=== PATIENT | female | born 1950 | race Caucasian/White ===

== ENCOUNTER 2017-03-09 14:33 | Inpatient (IN) | payer MEDICARE, MEDICAID ==
[~2017-03-09] VITALS: Ht 165.1 cm; Wt 56.9 kg
--- NOTE | ~2017-03-09 | ER ---
PATIENT'S NAME: SEUN TOWNSEND [facility] AGE: 66 Y [address] ROOM: [place] [address] [place] [facility] [place]: 03/09/[place] ER/Outpatient Report DISCHARGE DATE: FAMILY PHYSICIAN: PHYSICIAN, UNKNOWN ATTENDING PHYSICIAN: KEI LADD Time of Arrival: 1432 hours. Time of Exam: 1432 hours. CHIEF COMPLAINT: Fall. HISTORY OF PRESENT ILLNESS: The patient arrived per [facility] with saline lock in place. Report that the patient fell in the shower approximately 30 minutes prior to arrival. She states she just lost her balance and fell. She was complaining of neck pain upon ambulance arrival. Upon arrival to the ER, she states her neck is feeling better. She denies having any loss of consciousness. She denies pain anywhere else. She has not been nauseated, has not vomited, has not felt feverish or chills. A friend arrived shortly after the patient reports that since January the patient has had frequent falls, she used to walk with a walker and now is confined to a wheelchair. Friend stays with her and helps assist her from the bed to the wheelchair and from the wheelchair to the toilet, but questionable as to how well the patient is eating or having general care of herself. ALLERGIES: SHE HAS NO KNOWN ALLERGIES. CURRENT MEDICATIONS: On her chart and were reviewed by me. Med list was obtained from Pharmacy at [facility] where patient reports she gets her medications. PAST MEDICAL HISTORY: Bipolar, depression, and schizophrenia. PAST SURGERIES: Possible toe surgery, it was found on her old records, she is not able to tell us for sure if she has had any surgeries. SOCIAL HISTORY: She denies use of tobacco, drugs, or alcohol. REVIEW OF SYSTEMS: Negative other than those mentioned in the HPI. PATIENT'S NAME: SEUN TOWNSEND [facility] AGE: 66 Y [address] ROOM: [place] [address] [place] [facility] [place]: 03/09/2017 ER/Outpatient Report DISCHARGE DATE: FAMILY PHYSICIAN: PHYSICIAN, UNKNOWN ATTENDING PHYSICIAN: KEI LADD PHYSICAL EXAMINATION: VITAL SIGNS: She weighed 57 kg. Blood pressure 103/56, pulse of 102, respirations 18, temperature of 98.2, and O2 saturations 95% on room air. GENERAL: She is awake, alert, and oriented x4. SKIN: Ina, warm, and dry. Brittney Coma Scale is 15. HEENT: Pupils are equal reactive to light. Extraocular movements are intact. Negative nystagmus. Oropharynx is clear. She has teeth in various stages of decay. NECK: No lymphadenopathy of the neck is noted. LUNGS: Lung sounds were clear throughout. HEART: Regular rate and rhythm. ABDOMEN: Soft, nondistended. Bowel sounds are present. DIAGNOSTIC DATA: CT of the head and C-spine were completed. Radiologist reports that the C- spine was negative; however, she does have some edema of the right cerebellum and possibly a mass. I did draw lab at that point for CBC, chem panel, and ordered an MRI of the head with contrast. The patient was given Valium 2 mg IV push to help keep her calm throughout the CT scan. Her CBC is within normal limits. Chem panel: Sodium is 143, potassium is 3.7, chloride is 109, and her GFR is greater than 60. Radiologist reports with the MRI that the patient has an inflammatory lesion in the right cerebellum. Dr. Aparicio was consulted. We did together reassess the patient. Patient has fine tremor of hands. The patient is able to do nose to finger touch; with prompting, she is able to bring her left leg up to her right knee and slide it down her barker and slide it back up and do the same on the other side. However, she states she does feel dizzy with movement. I did do a CRP, it was 0.72, free T4 was 1.5, and a TSH at 2.59. Dr. Ladd was contacted regarding the patient, he agrees to admit her. IMPRESSION: 1. Disequilibrium. 2. Right cerebellum inflammatory lesion. PLAN: The patient will be placed in MSU with saline lock. Vital signs. Bed rest. Diet as tolerated with a hospitalist to follow. The patient and her friend verbalized understanding. LEILA CARLSON APRN FOR [employer]/damon PATIENT'S NAME: SEUN TOWNSEND [facility] AGE: 66 Y [address] ROOM: [address] [address] [place] [facility] [place] DATE: 03/09/2017 ER/Outpatient Report DISCHARGE DATE: FAMILY PHYSICIAN: PHYSICIAN, UNKNOWN ATTENDING PHYSICIAN: KEI LADD /[id number] d: 03/10/17 0056 t: 04/03/17 0912, OUTPATIENT REPORT
--- NOTE | ~2017-03-09 | HP ---
PATIENT'S NAME: SEUN TOWNSEND [facility] AGE: 66 Y [address] ROOM: [place] [id number] LOCATION: [facility] [place] ADMIT DATE: 03/09/2017 History & Physical DISCHARGE DATE: FAMILY PHYSICIAN: PHYSICIAN, UNKNOWN ATTENDING PHYSICIAN: KEI HAND DATE OF SERVICE: CHIEF COMPLAINT: Generalized weakness after mechanical fall. HISTORY OF PRESENT ILLNESS: This is a 66-year-old female, who says that she was at home taking a shower and her boyfriend was helping her, and all of a sudden, she slipped and fell while taking a shower; she states she hit the posterior right side of her head against the floor. There was no loss of consciousness, but there was some mild pain in the posterior neck. As the time went by, the patient felt that she was having this generalized weakness, and that is why the patient was brought here for further care and evaluation. The patient denies any chest pain, shortness of breath, palpitation, cough, blurry vision, headache, slurred speech, facial droop, sensation loss, numbness, or extreme muscle weakness. She just complained that she feels tired and weak in general. REVIEW OF SYSTEMS: As mentioned in the history of present illness. All other systems were reviewed and were negative except those mentioned in the history of present illness. PAST MEDICAL HISTORY: 1. Bipolar disorder. 2. Depression. 3. Schizophrenia. This is per medical records. 4. The patient denies any other medical problem. ALLERGIES: NO KNOWN DRUG ALLERGIES. HOME MEDICATIONS: The patient is not sure which one she takes; therefore, the list has to be reconciled first to find out. SOCIAL HISTORY: The patient denies any alcohol or illegal drug or cigarette use. PATIENT'S NAME: SEUN TOWNSEND [facility] AGE: 66 Y [address] ROOM: [address] [address] LOCATION: [facility] [place] ADMIT DATE: 03/09/2017 History & Physical DISCHARGE DATE: FAMILY PHYSICIAN: PHYSICIAN, UNKNOWN ATTENDING PHYSICIAN: KEI HAND FAMILY HISTORY: Father at the old age from a cause that she could not remember. Mother also from old age also from a cause that she could not remember. PAST SURGICAL HISTORY: The patient denies any surgery. PHYSICAL EXAMINATION: VITAL SIGNS: At the time of my dictation, temperature 98, blood pressure was 105/80, respiration was 14, saturation was 94% on room air, and heart rate was 84. GENERAL APPEARANCE: Alert and oriented x3. The patient looks weak and frail elderly female, who appears older than her age and looks malnourished, in no acute distress. HEENT: Pupils are equally round and reactive to light. Extraocular muscles intact. Anicteric sclerae. Nasal turbinates are normal bilaterally. Moist oral mucosa. NECK: No JVD. CARDIOVASCULAR: Regular rate and rhythm. Normal S1, S2. No murmur. No rubs, no gallops. RESPIRATORY: Clear to auscultation. No rales, no rhonchi, no crackles, no wheezing. ABDOMEN: Soft, nontender, nondistended, bowel sounds present, no mass. EXTREMITIES: She has edema in bilateral lower extremities. The patient states this is chronic and has not changed. SKIN: No ulcer, no rash, no cyanosis. NEUROLOGICAL: Cranial nerves 2 through 12 are unremarkable. There is no visual field loss. There is no sensation loss. There is contracture and spasticity in RUE and RLL but RUE more than RLE. Pronator drift negative. No facial droop. No slurred speech. Babinski negative. Allqob-aw-mizx with dysdiadochokinesia in right hand. Ccac-on-dshv with dysdiadochokinesia in right foot. Proprioception and also vibration intact. Mild weakness in RLE. LABORATORY DATA: White blood cells 5.9, hemoglobin 10.7, hematocrit 32.7, platelet 352. Glucose 93, BUN 13, creatinine 0.8, sodium 143, potassium 3.7, chloride 109, CO2 of 23, calcium 8.8. Total protein 7.8, albumin 3.3, AST 35, ALT 31, alkaline phosphatase 96, total bilirubin 1.1. Anion gap is 14.7, globulin 4.5. GFR more than 60. CRP is 0.72. Free T4 1.5. TSH 2.59. IMAGING STUDIES: CT of the brain done without contrast on admission showed abnormal edema in the right cerebellum of indeterminate etiology. Recommend an MRI. PATIENT'S NAME: SEUN TOWNSEND [facility] AGE: 66 Y [address] ROOM: [id number] [place] [address] LOCATION: [facility] [place] ADMIT DATE: 03/09/2017 History & Physical DISCHARGE DATE: FAMILY PHYSICIAN: PHYSICIAN, UNKNOWN ATTENDING PHYSICIAN: KEI HAND A MRI of the brain with and without contrast on admission showed the right cerebellar lesion is indeterminate. An inflammatory lesion is possible including demyelination. The appearance is atypical for neoplasm or infection. Follow up is recommended. CT of the cervical spine without contrast on admission showed no acute findings. ASSESSMENT AND PLAN: 1. Regarding her mechanical fall: PT, OT. Fall precaution. IV fluids. Pain control with Tylenol p.r.n. 2. Regarding her indeterminate right cerebellar lesion, probably an inflammatory lesion: This is based on the MRI of the brain. I have already spoken to the on-call neurologist, who will be coming by to see the patient. Further recommendation will depend on the clinical course and per Neurology evaluation. At the moment, the patient does not have any neurological deficit; however, I will keep checking the neuro check frequently. 3. Regarding her deep venous thrombosis prophylaxis: For now, I will use the compression devices, and I will speak to the Neurology about the deep vein thrombosis prophylaxis. 4. I will also give her IV fluids. The patient looks dry. I will check a UA to make sure she does not she does have any urinary tract infection. I will also get a chest x-ray given that she has leg edema, and check a proBNP to see if she has fluid overload and pleural effusion or congestive heart failure. Further plan depends on clinical course. Time spent in care on the day of admission 35 minutes where 15 minutes were spent on chart review. The remainder of time was spent on interview, physical examination, and chart review and also going over the plan of care with the patient. Further plan will depend on clinical course. MD ZEINAB SOSA/magalyl /[id number] D: 23 HISTORY & PHYSICAL
--- NOTE | ~2017-03-09 | DS ---
PATIENT'S NAME: SEUN TOWNSEND [facility] AGE: 66 Y [address] ROOM: [address] [address] LOCATION: [facility] [place] ADMIT DATE: 03/09/2017 Discharge Summary DISCHARGE DATE: 03/29/2017 FAMILY PHYSICIAN: PHYSICIAN, NO ATTENDING PHYSICIAN: Aimee Ladd PRIMARY PCP: Rocio Long PA-C. CONSULTING PHYSICIANS: Dr. Logan, Neurology; Dr. Wilkerson, Psychiatry; Lauren Liang APRN with [facility]. DISCHARGE DIAGNOSES: 1. Status post mechanical fall. 2. Right cerebellar demyelinating lesion. 3. Escherichia coli urinary tract infection, resolved. 4. Health care-associated pneumonia, resolved. 5. Sacral ulcer stage III. 6. Cognitive disorder. 7. Generalized weakness, impaired mobility, frequent falls. 8. Hypotension, stable. 9. Bipolar disorder. 10. Schizoaffective disorder. PRINCIPAL PROCEDURES: None. DISCHARGE MEDICATIONS: 1. Chlorhexidine gluconate oral rinse 4 times daily. 2. Vitamin B12 1000 mcg p.o. daily. 3. Folic acid 400 mg p.o. daily. 4. Benefiber 2 teaspoons p.o. daily. 5. Lamictal 25 mg p.o. b.i.d. 6. Nystatin ointment to perineal groin folds 3 times daily, last dose to be on 04/01/2017 (14 total days). 7. Protonix 40 mg p.o. daily. 8. Potassium chloride 40 mEq p.o. daily. 9. Risperdal 2 mg p.o. twice daily. 10. APAP 650 mg p.o. q.4 hours p.r.n. pain or fever. 11. Klonopin 0.5 mg p.o. q.h.s. p.r.n. insomnia. PERTINENT LABORATORY DATA: UA obtained on 03/10/2017, showed 25 leukocytes, positive nitrites, moderate bacteria, 30 protein, 25 blood. This ultimately grew out E. coli greater than 100,000 colonies. PERTINENT RADIOLOGIC DATA: 1. MRI of the brain with and without contrast on 03/09/2017, showed a right PATIENT'S NAME: SEUN TOWNSEND [facility] AGE: 66 Y [address] ROOM: [id number] [place], [place] [address] LOCATION: [facility] [place] ADMIT DATE: 03/09/2017 Discharge Summary DISCHARGE DATE: 03/29/2017 FAMILY PHYSICIAN: PHYSICIAN, NO ATTENDING PHYSICIAN: Aimee Ladd A cerebellar lesion that was indeterminate. Inflammatory lesion is possible including demyelination. 2. Chest x-ray, one view, 03/09/2017, showed scattered fibrotic strands. 3. CT of the head on 03/09/2017, did show abnormal edema in the right cerebellum, undetermined etiology, therefore the MRI had been recommended, which was obtained. See the beforehand mentioned results. 4. CT scan of the C-spine showed no acute findings. No fractures. Minimal degenerative changes. No severe stenosis. A CT scan of the chest on 03/20/2017, was obtained secondary to fever. This showed worsening in appearance when compared to that from 03/09/2017. There is a left infrahilar and left base opacity consistent with infiltrate. 5. CT scan of the chest without contrast on 03/20/2017, showed bibasilar opacity greater density on the left, bilateral pleural fluid collections with small pericardial effusion, and some cardiac enlargement with vascular congestion. 6. CT for PE protocol was obtained on 03/23/2017, given her tachycardia, this was negative for pulmonary embolism. HOSPITAL COURSE: Please refer to the admitting H and P dictated by Dr. Jones for more detailed outline of the patient's presentation. She was admitted on 03/09/2017, to inpatient status, was started on IV fluids with neurology to consult. Dr. Logan seen the patient in consultation on 03/09/2017. Please refer to his dictated consultation. There was a question of whether this may have been multiple sclerosis. Solu-Medrol was initiated with 500 mg IV q.12 hours for a total of 3 g. This really had no bearing on the patient's improvement. Her urine was found to have bacteria, therefore Rocephin was initiated on 03/10/2017, and cultures were sent. She was placed on heparin subcutaneously for DVT prophylaxis. We did have occupational and physical therapy continue to work with the patient throughout her hospitalization. The patient did require quite a bit of assistance. She is actually a full lift at times out of the bed to the chair. She did have intermittent confusion and her cognitive disability was evident throughout her stay. We did have Psych see the patient to adjust meds. The patient eventually grew out E. coli and a UTI, and ciprofloxacin was initiated on 03/14/2017. She was also covered the Florastor for GI prophylaxis during this time. She was seen by Psych on 03/15/2017, by Dr. Wilkerson. There was recommendation to increase the Risperdal 2 mg b.i.d. Provisions were started to get guardianship in place given her borderline intellectual inabilities to have insight to her medical and personal needs. The patient was found to be hypokalemic on the and potassium of 2.7, this was replaced with oral supplement. The patient was found to have a fungal rash of the groin and nystatin ointment was initiated to help manage with this. Throughout her hospitalization, the patient had blood pressures on the lower side trending systolically in the 90s to one- teens. It is thought this may be secondary to medication such as Risperdal. We did attempt fluid boluses, which really had no bearing on her blood PATIENT'S NAME: SEUN TOWNSEND [facility] AGE: 66 Y [address] ROOM: [place] [address] LOCATION: [facility] [place] ADMIT DATE: 03/09/2017 Discharge Summary DISCHARGE DATE: 03/29/2017 FAMILY PHYSICIAN: FLORA GRESHAM ATTENDING PHYSICIAN: Aimee Ladd. The patient was asymptomatic when she was hypotensive. EKG was also checked, which did show sinus tachycardia. Walk nurse was followed along to help with the groin rash. There was a concern for the patient to be septic on 03/20/2017. Workup was initiated with CBC, diff, lactic acid, procalcitonin, BMP, and urinalysis along with chest x-ray. At that point, it was suspected she had contracted a left pneumonia. A CT of the chest with and without contrast was obtained. Given the tachycardia, PE was ruled out. Ultimately, Zyvox and Zosyn were discontinued on 03/22, and she was placed on single-agent Levaquin. The patient's iron was checked and found to be 100, TIBC was 53, percent saturation 65, ferritin 752.9, folate was 15, vitamin B12 255. She was started on vitamin B12 and folic acid supplements. Ultimately, the patient continued to recover from her pneumonia. Vital signs were considered stable. She continued to trend systolically in the 90s for blood pressures. Guardianship revisions are being made. We are working with her sister and rn paralegal. Ultimately, guardianship was in place, and at that point, we were able to transfer her to a Long-Term Facility. The patient was transferred to [facility] in [place], [place] on 03/29/2017, with her sister, Jason Anderson, being named as guardian at that point. DISPOSITION: The patient is discharged on 03/29/2017, to [facility]. She should undergo OT and PT. She can adhere to a diet as tolerated. She should be followed by Walk Nurse also to help manage her stage III sacral ulcer. At this point, we are using checks, no briefs, turning the patient ajnl-qp-noiz, and applying Sensi-Care to the sacral wound 3 times a day and p.r.n. stooling. She should have a renal panel in 1 week to continue to follow her potassium and phosphorus. Dr. Logan to see the patient in neurologic followup in 1-2 weeks. Discharge of this patient took 35 minutes. ION ANDREWS PA-C FOR MD [employer]/damon /[id number] CC: Ruth Long MD PATIENT'S NAME: SEUN TOWNSEND [facility] AGE: 66 Y [address] ROOM: [address] [address] LOCATION: [facility] [place] ADMIT DATE: 03/09/2017 Discharge Summary DISCHARGE DATE: 03/29/2017 FAMILY PHYSICIAN: PHYSICIAN, NO ATTENDING PHYSICIAN: Aimee Ladd MD d: 03/30/17 0115 t: 04/01/17 1523, DISCHARGE SUMMARY
--- NOTE | ~2017-03-09 | CON ---
PATIENT'S NAME: SEUN TOWNSEND [facility] AGE: 66 Y [address] ROOM: [place] [address] [place] [facility] [place] DATE: 03/09/2017 Consultation DISCHARGE DATE: FAMILY PHYSICIAN: PHYSICIAN, NO ATTENDING PHYSICIAN: KEI HAND DATE OF CONSULTATION: 03/14/2017 REFERRING PHYSICIAN: CARMINA GARCIA MD REASON FOR CONSULTATION: Confusion. HISTORY OF PRESENT ILLNESS: The patient is a 66-year-old white female with a history of schizoaffective disorder, bipolar type, and borderline intellectual functioning who presents to the hospital with confusion, weakness, and falls in the setting of a right cerebellar lesion and UTI. She is seen today in her room. The patient is a poor historian, but admits that she has no recollection to the events that led to her admission and is unsure how long she has been in the hospital. She, however, denies depressive, manic, or psychotic symptoms, and says that she is doing okay for the most part. The patient has difficulty explaining her psychiatric diagnoses and does not recall her medications. She tells me that she lives in a hotel with her cat and that her friend, Angel, helps with medications and meals sometimes.She cannot tell me what she does with medications and meals and other activities of daily living when the friend is not around. The patient denies alcohol, tobacco, or illicit drug use. The rest of history is from medical records. PAST PSYCHIATRIC HISTORY: The patient has been diagnosed with schizoaffective disorder, bipolar type; borderline intellectual functioning; and has had prior psychiatric hospitalization at [facility]. She attended the [facility] for medication management and was last seen about 7 months ago. It is unclear if the patient has been compliant with medications. PAST MEDICAL HISTORY: See medical records. HOME MEDICATIONS: 1. Risperidone 1 mg in the morning and 2 mg at bedtime. 2. Clonazepam 0.5 mg prn at bedtime. 3. Topamax 25 mg twice daily. 4. Lamictal 25 mg twice daily. ALLERGIES: PATIENT'S NAME: SEUN TOWNSEND [facility] AGE: 66 Y [address] ROOM: [place] [address] [place]: [facility] [place]MIT DATE: 03/09/2017 Consultation DISCHARGE DATE: FAMILY PHYSICIAN: PHYSICIAN, NO ATTENDING PHYSICIAN: KEI HAND NO KNOWN DRUG ALLERGIES. PAST FAMILY AND SOCIAL HISTORY: The patient is single, never , and has no children. She lives alone. Her level of education is not known at this time. She is currently unemployed and on disability. She has no history of alcohol, tobacco, or illicit drug use. Her family history of mental illness is unknown. REVIEW OF SYSTEMS: Ten systems reviewed and all others negative, except as noted in the history. MENTAL STATUS EXAMINATION: The patient is in bed. She appears older than stated age. She is cooperative with the interview. She makes good eye contact. She has a normal psychomotor activity. Her speech is slow. She describes mood as euthymic. Her affect is restricted. Her thoughts are logical and goal directed. She denies suicidal, homicidal, or violent ideations. She denies hallucinations and no delusions are noted at the interview. She is alert and oriented to person only and poorly to time and place. Her concentration and memory are impaired, though she did not cooperate with a formal cognitive testing. Her insight and judgment are limited. DIAGNOSES: 1. Delirium secondary to multiple etiologies. 2. Schizoaffective disorder, bipolar type. 3. Borderline intellectual functioning. PLAN: The patient's presentation with sudden onset of confusion, impaired memory, and orientation suggests a delirium likely from her underlying medical conditions, however, she does not appear capable of making decisions regarding her personal and health care at this time. The patient's family should be encouraged to appoint a guardian to manage her affairs. Consider stopping Topamax since there no clear indications for this medication. Change risperidone to 2 mg twice daily. Monitor for adverse effects and response. Re-consult Psychiatry as needed. Thank you for your consult. MD GREG SALCEDO/damon PATIENT'S NAME: SEUN TOWNSEND [facility] AGE: 66 Y [address] ROOM: [address] [address] [place] [facility] [place] DATE: 03/09/2017 Consultation DISCHARGE DATE: FAMILY PHYSICIAN: FLORA GRESHAM ATTENDING PHYSICIAN: KEI HAND /[id number] d: 03/14/17 2255 t: 03/15/17 0842, CONSULTATION REPORT
--- NOTE | ~2017-03-09 | CON ---
PATIENT'S NAME: SEUN CALDERON [facility] AGE: 66 Y [address] ROOM: G3202 [place], [place] [address] LOCATION: [facility] [place] ADMIT DATE: 03/09/2017 Consultation DISCHARGE DATE: FAMILY PHYSICIAN: PHYSICIAN, UNKNOWN ATTENDING PHYSICIAN: KEI HAND DATE OF CONSULTATION: 03/09/2017 REFERRING PHYSICIAN: CARMINA GARCIA MD TIME SEEN: 10 p.m. HISTORY OF PRESENT ILLNESS: Ms. Calderon is a 66-year-old female patient whom we have very little information concerning her living status. Apparently, she lives alone, but does have a friend who comes in and sees her or perhaps lives with her. He apparently had called EMS today when he found that she was on the floor and had slipped and fallen at her tub and likely had hit her head when she fell. The patient did not lose any consciousness, but had difficulty in getting up. The patient resides here in [place] by herself and does not have any immediate family members nearby. The patient was taken here to the emergency room for evaluation. She was able to speak, did not have any aphasia, did not do not have any complaints such as headache or vision loss, but was obviously quite debilitated and even appeared to be quite thin. She was noted to be edentulous and somewhat disheveled. The patient gave some adequate history that she was trying to do some bathing and simply slipped by the tub; however, in discussions with the patient, she seemed to also have some bizarre answers, often seemed to be confused, and this is probably her baseline in discussions with us. A CAT scan of the brain was performed and showed some evidence of a swelling in the area of the right cerebellar hemisphere. A followup MRI with and without contrast was also performed and thankfully it did not show any evidence of an acute stroke or any subacute stroke; however, it backed up the evidence of the CT showing an area of some mild swelling into the right cerebellar hemisphere. I noted that there was also more localized area towards the midline of the right cerebellum and the surrounding area of edema which extended into the region of the cerebellar peduncles as it connects to the kellie. There was also an area of swelling that seemed to cross the midline barely to the left-side of the cerebellum and even some potential increased T2 prolongation noted in the left cerebellum as well. Essentially, the swelling more specifically T2 prolongation was very diffuse and did not necessarily follow any particular thornton or white matter distribution. It appeared to be some type of broad demyelinating lesion as a possible etiology and again some more midline foci that seemed to be an area where this swelling radiated out of. It did not seem very typical for a tumor and did not highlight with contrast probably suggested that this was a not necessarily a new PATIENT'S NAME: SEUN CALDERON [facility] AGE: 66 Y [address] ROOM: [id number] [place], [place] [address] LOCATION: [facility] [place] ADMIT DATE: 03/09/2017 Consultation DISCHARGE DATE: FAMILY PHYSICIAN: PHYSICIAN, UNKNOWN ATTENDING PHYSICIAN: KEI HAND A demyelination, but probably some new swelling around an area of a possible demyelination. This clearly opens up a puzzle for us as to whether this was a 1st time event for the patient having a demyelination; certainly, there was no other demyelinating lesions of obvious focus throughout the brain. That being said, there is some signs on the patient's physical exam that would suggest that she has at least some cerebellar dysfunction. Today, she had noted some mild dysmetria on [id number] as well as some dysmetria even on her leg movements. She seemed a bit slower in her speech and some of her speech was staccatic in nature. She did not have a true slur of her speech and she did not have any problems with word finding. Other than that, her body habitus seemed to be quite thin and she again seem to be disheveled. She was noted to have increased tone symmetrically with the quality of some spasticity, rate dependent in her bilateral upper extremities, and even her wrists seemed to show some flexion spasticity as well; however, was able to sort of try her arms back and forth a bit more, she did not give me full power based largely on her increased tone, and even noted that her lower extremity tone was slightly increased. Nonetheless, she had fairly normal reflexes in her patellas as well as a downgoing plantar reflexes. 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 PAST MEDICAL HISTORY: We do not have much to go on, the patient denies a history of hypertension and/or diabetes. I was told that the patient may have some psychiatric history, but we are in the dark as far as certain treatments with medications and whether she was on any antipsychotic medications that could cause some extrapyramidal findings. CURRENT MEDICATIONS: Listed in her chart include: 1. Risperdal 1 mg p.o. q.a.m. and 2 mg at bedtime. 2. Lamictal 25 mg twice a day. 3. Topamax 25 mg twice a day. 4. Clonazepam 0.5 mg q.h.s. ALLERGIES: THE PATIENT DENIES ANY ALLERGIES TO MEDICATIONS. FAMILY HISTORY: Unknown. The patient states that her mother and father in the past. She denies having any family members that necessarily check in on her though she does have a next-of-kin listed in [place], [place]. REVIEW OF SYSTEMS: PATIENT'S NAME: SEUN CALDERON [facility] AGE: 66 Y [address] ROOM: [address] [address] LOCATION: [facility] [place] ADMIT DATE: 03/09/2017 Consultation DISCHARGE DATE: FAMILY PHYSICIAN: PHYSICIAN, UNKNOWN ATTENDING PHYSICIAN: KEI HAND Ms. Calderon is a 66-year-old female who looks older than her stated age. She appears to be disheveled, edentulous, and somewhat thin. We have no significant prior medical history other than the medications that she is on which is suggestive of possible psychiatric disease. She apparently lives alone, but does have a "friend" that comes in and sees her. She came in today after experiencing a fall at her bathtub, which she states that she usually takes and is quite independent. The patient denies any headache or neck pain presently. She denies any GI issue such as diarrhea or constipation. She denies any fever. She denies any symptoms of upper respiratory tract infection. She denies any vertigo symptoms. She denies any sudden onset of focal weakness to her limbs. PHYSICAL EXAMINATION: The patient was lying up in bed, appeared to lying supine in bed, appeared to be somewhat contracted in her upper extremities. There was increased tone noted in her arms and had a quality of spasticity, which was easily pliable, but it was rate-dependent spasticity that improves with testing. She appeared to be thin, she is edentulous, there is normal facial sensation, there is a slight facial droop, this is likely due to her being edentulous. Her neck was supple on flexion and extension. Her motor power was grossly weak with 4/5 power in both her upper extremities and her lower extremities. She did not give full power on testing. She was able to lift up her legs on testing, but not very high above the bed. She seemed to be weaker in her right lower extremity. On flexion at the knees, she was able to extend out her knees fairly well. She was noted to have dysmetria on [id number]-[id number] in the right upper extremity, but she really did not extend out her arms very well for full testing. It was impossible to test for any pronator drift. Sensory exam was grossly intact. Reflexes revealed +2 in the biceps, triceps, and brachioradialis. Patellar reflexes were trace on the left, +2 on the right, plantar reflexes were downgoing. There was no evidence of any clonus. She has deformed feet bilaterally, which appeared to be inverted, and had a "clubfoot" type of morphology. IMPRESSION: Ms. Calderon fell at home, we do not know much about her living home situation, we found evidence that she has a cerebellar process ongoing, which could be a demyelinating lesion extending from perhaps a simple focus in the right cerebellar hemisphere. The demyelination appears to be grossly over the whole cerebellar hemisphere even extending into the cerebellar peduncle where it connects into the kellie. This is not consistent with a stroke as on diffusion-weighted imaging there was no evidence of this being positive and ADC mapping also backs up that this was not a stroke or subacute stroke. In viewing the rest of the MRI, there is no evidence of any demyelination areas elsewhere. Nonetheless, this could be a presentation of the tumefactive multiple sclerosis as a one lesion type of presentation. It is possibility PATIENT'S NAME: SEUN CALDERON [facility] AGE: 66 Y [address] ROOM: [id number] [place], [place] [address] LOCATION: [facility] [place] ADMIT DATE: 03/09/2017 Consultation DISCHARGE DATE: FAMILY PHYSICIAN: PHYSICIAN, UNKNOWN ATTENDING PHYSICIAN: KEI HAND that she may even have some type of a primary progressive multiple sclerosis noted by her increased tone into her upper extremities and also slowing of her speech. There is issues with her medications such as risperidone and whether this is causing some slowing of the motor movements and could give her extrapyramidal issue. It is not fairly certain that this focus in the right cerebellar hemisphere is a tumor or not, but because it has appearance of demyelination and is giving her symptoms of dysmetria on the right-side and potentially even some weakness, we will give her a trial of Solu-Medrol, we will give her 500 mg tonight and continue 500 mg twice a day for a total of 3 days. We tried to gain some other information concerning her medical history. The nurse informs me that on simply trying to ambulate the patient she is extremely off balance and is unable to even ambulate; so, it is difficult to see how she was doing this on her own. This was discussed lilli with Dr. Jones and I will follow up with the Hospitalist Service concerning the patient's status. MD LIA GOMEZ/modl /[id number] d: 03/10/17 0233 t: 03/14/17 1140, CONSULTATION REPORT
--- NOTE | ~2017-03-09 | CON ---
PATIENT'S NAME: SEUN TOWNSEND [facility] AGE: 66 Y [address] ROOM: [place] [address] LOCATION: [facility] [place] ADMIT DATE: 03/09/2017 Consultation DISCHARGE DATE: FAMILY PHYSICIAN: PHYSICIAN, NO ATTENDING PHYSICIAN: KEI HAND DATE OF CONSULTATION: 03/19/2017 REFERRING PHYSICIAN: Dr. Hernández. REASON FOR CONSULT: Groin rash. HISTORY OF PRESENT ILLNESS: This is a 66-year-old female patient who was admitted to [facility] after a fall and suffers from a cerebellar lesion. No skin issues noted upon admit. She currently resides at [facility]. She is disabled. She has a history of bipolar, depression, and schizophrenia. Rash was noted by nursing staff yesterday. Nystatin powder started. Pride catheter is placed. The patient denies pain or pruritus. She notes she wants to go home. She reports a fair oral intake. She is not very cooperative and just reports she wants to go home. She does report that she feels tired. PAST MEDICAL HISTORY: Bipolar, depression, schizophrenia. PAST SURGICAL HISTORY: Ingrown toenail removal. SOCIAL HISTORY: The patient lives in [facility]. She is a nonsmoker. ALLERGIES: NO KNOWN DRUG ALLERGIES. CURRENT MEDICATIONS: Please refer to the medication administration record. REVIEW OF SYSTEMS: Unable to fully complete due to the patient being uncooperative. See HPI for further details. PATIENT'S NAME: SEUN TOWNSEND [facility] AGE: 66 Y [address] ROOM: [place] [address] LOCATION: [facility] [place] ADMIT DATE: 03/09/2017 Consultation DISCHARGE DATE: FAMILY PHYSICIAN: PHYSICIAN, NO ATTENDING PHYSICIAN: KEI HAND PHYSICAL EXAMINATION: VITAL SIGNS: Temperature 97.7, pulse 94, respirations 16, blood pressure 101/73, pulse oximetry 95% on room air. Height 5 feet 5 inches and weight 56.9 kg. GENERAL: The patient is alert and anxious. Reporting she wants to go home. Slightly uncooperative. HEENT: Poor dentition. NECK: Supple. ABDOMEN: Soft. EXTREMITIES: +2 pedal pulses. +1 edema. Obvious foot deformity noted. SKIN: Entire perineal and groin area has a bright red rash with satellite lesions. No skin denudement. No odor. No drainage. No other skin issues noted. LABORATORY DATA: Sodium 144, potassium 4.0, chloride 116, bicarb 20, BUN 8, creatinine 0.4, glucose 99, and albumin 2.1. ASSESSMENT AND PLAN: Again, this is a 66-year-old female patient who was admitted to [facility] after a fall. Wound Care consult to evaluate a red groin rash. 1. Incontinence-associated dermatitis with secondary candidiasis infection. No active skin denudement. Pride is now controlling incontinence. The patient has no complaints to this site. We will initiate meticulous skin cleansing with pH foam cleansers and avoid soap due to its alkaline nature. We will treat the fungal rash with nystatin ointment t.i.d. If no response in a few days, we will add Diflucan. I would like the Pride catheter left in place until the site is more resolved. 2. Right cerebellar lesion. Neuro on board. I would like to thank Dr. Hernández for this consult. RAVIN ZAPATA APRN FOR MD YESSI WILLIAMSON/modl /[id number] d: 03/19/172031 t: 04/02/173, CONSULTATION REPORT
[2017-03-09 15:57] LABS: HEMATOCRIT 32.7 % (33.0-46.0); HEMOGLOBIN 10.7 g/dL (10.0-15.0); MCH 29.6 pg (27.0-34.0); MCHC 32.7 gm/dL (32.0-36.5); MCV 90.6 fl (83.0-98.0); MPV 10.2 fl (9.4-12.4); PLATELET COUNT 352 K/uL (150-450); RBC 3.61 M/uL (3.50-5.50); RDW-CV 18.2 % (11.9-14.6); WBC 5.9 K/uL (4.0-11.0)
[2017-03-09 16:12] LABS: ALBUMIN 3.3 gm/dL (3.5-5.0); ALK PHOS 96 IU/L (33-138); ALT 31 IU/L (12-78); ANION GAP 14.7 (10.0-19.0); AST 35 IU/L (10-40); BLOOD UREA NITROGEN 13 mg/dL (6-24); CALCIUM 8.8 mg/dL (8.5-10.5); CHLORIDE 109 mMol/L (96-110); CO2 23 mMol/L (22-32); CREATININE 0.8 mg/dL (0.5-1.1); ESTIMATED GFR (MDRD EQUATION) > 60; POTASSIUM 3.7 mMol/L (3.7-5.1); SODIUM 143 mMol/L (135-145); TOTAL BILIRUBIN 1.1 mg/dL (0.0-1.5); TOTAL PROTEIN 7.8 g/dL (6.0-8.4)
[2017-03-09 16:28] LABS: ABSOLUTE NEUTROPHIL CT (ANC) 4.4 K/uL (1.8-7.8); BANDED NEUTROPHIL # 0.5 K/uL (0.0-0.1); BANDED NEUTROPHILS % 9 %; LYMPHOCYTE # 0.8 K/uL (0.8-4.0); LYMPHOCYTE % 13 %; MONOCYTE # 0.5 K/uL (0.0-1.0); SEGMENTED NEUTROPHIL # 3.9 K/uL (1.8-7.8); SEGMENTED NEUTROPHIL % 66 %
[2017-03-10 00:08] LABS: CPK 172 IU/L (21-215)
--- NOTE | 2017-03-10 04:18 | NUR ---
66 year old pt. admitted around shift change from ED for fall and disequillibrium. Pt. reported that she fell in the shower at home. Very poor historian. Psych. history of bipolar, schizo, and depression. No other known past medical history. MRI showed that there is a R) cerebellum inflammation lesion. Unsure of whether it is related to fall or not. Denies pain on admission and through shift. Very heavy 2 assist with walker. Said she lives alone with a friend who checks on her. She could not walk when tried to stand up and go to BR. Very poor self care. Neuro consult last night - see note. Has not had much medical assistance or care. Will need placement after discharge. Cooperative with cares.
[2017-03-10 05:53] LABS: HEMATOCRIT 30.3 % (33.0-46.0); HEMOGLOBIN 9.7 g/dL (10.0-15.0); MCH 28.9 pg (27.0-34.0); MCV 90.2 fl (83.0-98.0); MPV 10.1 fl (9.4-12.4); RBC 3.36 M/uL (3.50-5.50); RDW-CV 18.2 % (11.9-14.6); WBC 5.1 K/uL (4.0-11.0)
[2017-03-10 06:08] LABS: BLOOD UREA NITROGEN 11 mg/dL (6-24); CALCIUM 8.2 mg/dL (8.5-10.5); CHLORIDE 112 mMol/L (96-110); CO2 20 mMol/L (22-32); CREATININE 0.7 mg/dL (0.5-1.1); ESTIMATED GFR (MDRD EQUATION) > 60; SODIUM 142 mMol/L (135-145)
--- NOTE | 2017-03-10 07:17 | NUR ---
Pt. arrived to floor from ED around 1999. Appeared dishelved, unclean, unkept, broken teeth, dirty clothes, foul breath, and also what appeared to be stained/old blood on underwear. Reports that she has a male friend that checks on her but otherwise she lives alone with her cat.
[2017-03-10] MEDS ORDERED: LAMICTAL25 MG PO (10:21)
[2017-03-10] MEDS ORDERED: KLONOPIN0.5 MG PO (10:22)
[2017-03-10] MEDS ORDERED: RISPERDAL1 MG PO (10:23)
[2017-03-10] MEDS ORDERED: RISPERDAL2 MG PO (10:25)
[2017-03-10 12:20] LABS: BILIRUBIN URINE NEGATIVE (NEGATIVE); BLOOD URINE 25 /UL (NEGATIVE); GLUCOSE URINE NEGATIVE (NEGATIVE); KETONE URINE 15 mg/dL (NEGATIVE); LEUKOCYTES URINE 25 /UL (NEGATIVE); NITRITE URINE POSITIVE (NEGATIVE); PROTEIN URINE 30 mg/dL (NEGATIVE); SPEC GRAVITY URINE 1.025 (1.003-1.035); TURBIDITY URINE 1+ (CLEAR); UROBILINOGEN URINE NORMAL (NORMAL)
[2017-03-10 12:23] LABS: COLOR URINE AMBER (YELLOW)
[2017-03-10 12:31] LABS: RBC URINE NEGATIVE #/HPF (NEGATIVE); WBC URINE RARE #/HPF (NEGATIVE)
[2017-03-10 12:32] LABS: BACTERIA URINE MODERATE (NEGATIVE); EPITHELIAL URINE NEGATIVE #/HPF (NEGATIVE)
--- NOTE | 2017-03-10 16:05 | NUR ---
Significant event: Up to commode this am to try to void and get UA, maximum 2 assist and gait belt pivot transfer. Ambulated to shower with 2 assist, gait belt and walker. Ambulated back to bed with maximum 2 assist, gait belt and walker. This am with val[facility] cares had brown discharge in attends. Bladder scan done this am at 1000-715 ml. Pride placed at 1205, dark ladonna urine with white sediment. UA sent to lab. Noted patient has small bruise to right buttock, has abrasions to right hip and has red area to coccyx and gluteal crease, aloe vest applied. Turned q 2h. Patient much more verbal this afternoon and reports she is feeling better. Her mental health provider was here (Yareli Hennessy) and reports patient is acting more like her normal self today than yesterday. She also reported the patient has been using a walker and sometimes a w/c at home since January. Yareli also reported she has been in touch with [employer], she reports is a home health company associated with [employer] and they can help with what she will need at home.
--- NOTE | 2017-03-11 02:17 | NUR ---
Significant Event: PT ALERT, DISORIENTED TO TIME AND SOMETIMES PLACE. REORIENTED NEEDED. BPs RUNNING 90/58-103/61. AFEBRILE, ON ROOM AIR. IVF RUNNING TO R AC. R ARM IS SLIGHTLY CONTRACTURED. PT REPORTS IT HASNT BEEN STRAIGHT FOR YEARS. UP WITH HEAVY 2PA WALKER AND GAITBELT. PT RESTED IN BED ALL SHIFT. REPOSITIONED Q2HR. US PATENT, CLOUDY DARK YELLOW OUTPUT. POOR DENTAL HEALTH. DENIES PAIN, DENIES NAUSEA. PT SPEECH IS MUMBLED, OFTEN REPETATIVE. PT REPORTED TO NURSE HEARING A LITTLE BOY EARLIER, BUT COULD NOT FIND HIM. REORIENTED. LATER REASSESSED AND PT REPORTS NOT HEARING OR SEEING A BOY BUT HEARING A VOICE ASKING HER WHY SHE HAS TO GO THROUGH ALL THIS- THEN KEPT REPEATING "I JUST DONT WANT TO GO THROUGH THIS". NURSE EXPLAINED TO PT THAT SHE IS IN THE HOSPITAL UNTIL SHE IS WELL AGAIN. PT REPORTS BEING VERY ANXIOUS ABOUT LOSING HER MEMORY. NURSE CONVERSED WITH PT FOR A BIT UNTIL CALMER AND PT REPORTED WANTING TO SLEEP. Follow up: [facility], REPOSITION, MONITOR ANXIETY, MONITOR HALLUCINATIONS
--- NOTE | 2017-03-11 18:43 | NUR ---
Significant event: Patient is alert to self and place on occasion. Needs frequent reminders. VSS. on room air. IV to left forearm with fluids running. Patient needs help to reposition. Is a heavy 2-assist with transfers. Worked with PT/OT today. Pride in place and is patent. Patient talks about the "boss of this place and owing money and how she just isn't going to do it anymore and she is just going to tell him no." States that she is not hearing voices since this morning. Cooperative with cares.
--- NOTE | 2017-03-12 02:04 | NUR ---
Significant Event: PT ALERT, DISORIENTED TO PLACE AND TIME, REORIENTED NEEDED. DENIES HALLUCINATIONS THIS SHIFT. US PATENT. HAD A SMALL INC BM. REPOSITIONED Q2HR. UP WITH 2PA, FULL LIFT. IVF RUNNING TO FA. [facility] SOFT DIET, REFUSED DINNER. DENIES PAIN, DENIES NAUSEA. HOME DOSE RISPERIONE NEEDS CLARIFIED WITH PHARMACY WHEN OPEN. Follow up: [facility], CONTINUE TO MONITOR
[2017-03-12] MEDS ORDERED: TOPAMAX25 MG PO (14:42)
--- NOTE | 2017-03-12 15:02 | NUR ---
Phone message from Sheri Macedoam with [employer] at 0801 today. Returned call to Sheri at 0900 to her [phone]. Sheri stated she has a report called into [facility] sometime last week. She went out to the home on Sunday and found the patient to need emergent medical care so she called 911 and had patient brought to the hospital. The history of the patient per Sheri Padron is this: Patient lives alone in an apartment. Her friend Angel, who is mild to moderately developmentally delayed helps care for her in the home. Rubi has a sister Rosamaria, whom she thinks lives in [place], but Sheri states actually lives in [place], and a brother Vickey in [place]. Olga told Sheri that she is planning on meeting with an social science professor in a few weeks to get guardianship of patient. Patient has had recent falls starting in January. HOA Orozco at [facility] has been working with the patient on finding caregivers to come into the home and assist her. Ernesto contacted the [employer] to have them assist, but it has taken them a long time to get any caregivers arranged. The [employer] was also to get a hospital bed and [employer] for the patient, but that has not been done yet either. [facility] has concerns about patient discharging back to home with Angel as her primary caregiver given the condition she came in last week and the condition of the home when they were there. Patient also sees PEBBLES Ríos with [facility] here in [place] (cell phone [phone]). I met with patient at 0950 today and introduced myself and explained my role with the CM department. Received a consult stating patient needs to be placed in a jail facility. Patient states that her plan is to return home at discharge. She states that Angel does a good job caring for her, even though he says he "is good for nothing." Rubi states she will not go to a jail facility because she has her cat Tugger at home who she needs to care for. Rubi told me that her sister Olga does not care about her, but her brother Vickey does care about her. At 1200 I received a phone call from Yareli Hennessy, patient's therapist asking for information on patient. I told her that I cannot talk to her about patient until I have a release of records signed. I met with Rubi and let her know that Yareli called to check on her. Rubi gave verbal permission for me to speak to Yareli and she also signed the Release of Information Authorization which I faxed to Gilma at [phone]. I spoke to Gilma at length on the phone. She states she has worked with patient for 4 years. She states this is not baseline for patient. Prior to January patient was able to ambulate with a walker and her cognition was fine. Gilma states since January she has noticed a slight decline in her mobility, but it was not until last week that she noticed the deterioration in her cognitive abilities. I explained to Yareli that the doctor has ordered for me to find placement for patient. Yareli is concerned about this as she does not think patient will agree to go to a SNF because of her cat. Gilma states that she was trying to plan a home visit and meeting with Adrianne, the cargivers, this week with her and patient. She asked if they set up home caregivers if that will be enough to keep patient in her own home with Angel assisting with care too. I told Gilma that it completely depends on how many hours they can be there for patient. I suggested to Gilma to contact Adrianne and come and meet with patient here tomorrow. She thought this would be a good idea. I also explained to her that I will need to do an ID Screen on patient in order for her to go to a Care Home Facility and her ID screen will be a Level 2 due to her mental health diagnoses and her mental health meds. Because of this it will take time to get her ID screen approved and it will be difficult to find her placement. Gilma will let me know if she was able to get a meeting scheduled with Adrianne here tomorrow. I called Sheri Padron with [employer] to give her an update and Sheri said that the [employer] had approved only 35 hours a week for caregivers. I will let the physician know this, but I am not sure this will be enough hours to keep patient in her home. Will continue to follow.
--- NOTE | 2017-03-12 15:53 | NUR ---
Significant Event: Patient alert but confused at times. Repeats the same question many times. 2 assist reposition. full lift. Singleton discontinued at 1530. No void as of yet. Follow singleton removal protocol. Speech consult. Teeth are missing and chipped. Small bowel movement. IV intact. Continues on IV antibiotics. Follow up:
--- NOTE | 2017-03-13 03:53 | NUR ---
Significant Event: PT ALERT, DISORIENTED TO TIME/PLACE. REORIENTED NEEDED. IVF RUNNING TO L FA. 2PA, FULL LIFT. THERAPY WORKING WITH. REPOSITION FREQUENTLY. NO VOID SINCE US REMOVAL, BLADDER SCAN AT 6HR WAS ONLY 283ML. BLADDER SCAN AT 12HR WAS 514ML. NOTIFIED AND ORDERS FOR STRAIGHT CATH X1- IF NO VOID AGAIN AND BLADDER SCAN >500ML REPLACE US. Follow up: MONITOR VOIDS
--- NOTE | 2017-03-13 13:21 | NUR ---
Team meeting at 1130 this morning with Sheri Padron with [facility], Junie from [facility], Yareli Hennessy patient's therapist, GIN Pearce, patient and myself to discuss a safe discharge plan for her. The [employer] has authorized for 35 hours a week caregivers. At this time we do not feel that is adequate to meet her needs. Fiorella and I explained that we feel patient is currently needing 24/7 care at this time. Per Sheri Padron, the [employer] is going to come and assess patient tomorrow to see if she would qualify for more than 35 hours a week care. At this time we do not know if they would be able to qaulify her for 24/7 care in her own home or not, we will know more after they assess her tomorrow. In the meantime, it was explained to patient that our recommendation is for her to go to a shelter facility for a short stay to get stronger before returning to her own home. Although patient is not happy with this, she is agreeable to going to a SNF. This will allow the League more time to find caregivers to meet patient needs in the home. We also discussed the need to find a guardian for the patient. In order to proceed with locating a guardian, a psych consult needs to be done to determine if she is competent to make her own decisions. GIN Pearce ordered the psych consult. Once we have the results of that, Sheri Padron will work with patient and family on finding guardian if it is deemed necessary. ID screen has been completed, but it is pending at this time. Will likely be a Level 2 based on past psychiatric diagnoses. Will wait to hear from [facility] on results of the ID screen. If it is a Level 2 they will send one of their evaluators out to meet patient and determine SNF placement is appropriate for her. Will continue to follow and work on placement options.
--- NOTE | 2017-03-13 16:53 | NUR ---
A-NUTRITION F/U VISITED W/PT RE: ENSURE ENLIVE. PT STATES THAT SHE LIKES THE ENSURE; PT IS DRINKING THE REST OF THE ONE FROM HER LUNCH AT TIME OF VISIT. NO CBW. (+)BM. NO NEW LABS SINCE INITIAL ASSESSMENT. MEDS: KLONOPIN, LAMICTAL, RISPERDAL, TOPAMAX, MIRALAX DIET RX: MECHANICAL SOFT DIET W/ENSURE ENLIVE TID. PO INTAKE HAS BEEN REFUSALS-75%; AVG IS 75%. EST NUTR NEEDS: [id number] KCALS AND 56-68 GM PROTEIN D-AT NUTRITION RISK W/INADEQUATE ORAL INTAKE R/T ALTERED APPETITE AEB INTAKE RECORDS. I-CONTINUE W/ENSURE ENLIVE TID M/E-GOAL: PO INTAKE >/=50% BY DISCHARGE 1)F/U PO INTAKE, SUPPLEMENT, WT, AND POC IN 3-5 DAYS 2)ASSIST NEEDED
--- NOTE | 2017-03-13 19:53 | NUR ---
Oriented to self. Some disorganized speech. Heavy 2assist or full lift. Reposisiton frequently. Check for incontinence of bowel and bladder. Incontinent of bladder x1 large void; incontinent of bowel x2, one xlarge. Redness to periarea. IV to LFA @125. Frequent oral cares. Refused Miralax today. CM meeting re: status/placement w/state caseworker. Refused bfast. Ensure ice cream shake for lunch.
--- NOTE | 2017-03-14 02:22 | NUR ---
Significant Event: PT ALERT, DISORIENTED TO TIME AND SOMETIMES TO PLACE. REORIENTED NEEDED. ON SECOND ASSESSMENT PT ASKED NURSE WHO THE LITTLE BOY WITH HER WAS. HAS HX BIPOLAR, DEPRESSION, SCHIZOPHRENIA. IVF CONTINUE TO RUN TO L FA. PT DID NOT GET OUT OF BED THIS SHIFT. REPOSITIONED FREQUENTLY. BUTTOCK CREASE LOOKS LIKE IT COULD BE CRACKING IN THE CENTER. PT HAS POOR ORAL HEALTH, GOOD ORAL CARES COMPLETED. THE [employer] IS TO COME EVAL WED. CM WORKING WITH [facility] [employer] [employer] AND PTs MENTAL HEALTH WORKER TO FIND BEST OPTION FOR PT ON DISCHARGE, MORE THAN LIKELY TO A SNF. PTs FRIEND SOPHIA CAME TO VISIT THIS EVENING. PT WAS VERY EXCITED ABOUT IT AND TELLING HIM SHE SHOULD BE GETTING OUT TOMORROW AND CANT WAIT TO GET HOME, ETC.. Follow up: REPOSITIONING, ORAL CARES
[2017-03-14 05:09] LABS: BASOPHIL % 0.1 %; EOSINOPHIL % 0.4 %; HEMATOCRIT 29.5 % (33.0-46.0); HEMOGLOBIN 9.4 g/dL (10.0-15.0); IMMATURE GRANULOCYTE # 0.2 K/uL (0.0-0.3); LYMPHOCYTE # 1.1 K/uL (0.8-4.0); LYMPHOCYTE % 14.2 %; MCHC 31.9 gm/dL (32.0-36.5); MONOCYTE # 0.7 K/uL (0.0-1.0); MONOCYTE % 9.6 %; MPV 10.5 fl (9.4-12.4); NEUTROPHIL # (ANC) 5.5 K/uL (1.8-7.8); NEUTROPHIL % 73.7 %; NRBC % 0.7 /100WBC (0-0.00); PLATELET COUNT 275 K/uL (150-450); RBC 3.24 M/uL (3.50-5.50); RDW-CV 19.2 % (11.9-14.6); WBC 7.5 K/uL (4.0-11.0)
[2017-03-14 05:22] LABS: ALBUMIN 2.1 gm/dL (3.5-5.0); ANION GAP 8.8 (10.0-19.0); BLOOD UREA NITROGEN 10 mg/dL (6-24); CHLORIDE 117 mMol/L (96-110); CO2 21 mMol/L (22-32); CREATININE 0.5 mg/dL (0.5-1.1); ESTIMATED GFR (MDRD EQUATION) > 60; PHOSPHORUS 1.4 mg/dL (2.5-4.9); POTASSIUM 2.8 mMol/L (3.7-5.1); SODIUM 144 mMol/L (135-145)
--- NOTE | 2017-03-14 11:07 | NUR ---
Received notice from [facility] that patient is a Level 2 so they have an relocation associate coming to assess patient at 1300 today.
--- NOTE | 2017-03-14 15:24 | NUR ---
Patient is alert, disoriented to time. Has been incontinent of both bowel and bladder. IV in L) forearm had blood return, potassium chloride infusing along with D5NS. She has not had any hallucinations today. Good oral care was done this AM. Psych consult was done today, do not know the results of that yet. [employer] was also here to assess.
--- NOTE | 2017-03-15 12:36 | NUR ---
Met with patient and her therapist Gilma Hennessy this morning. Patient states she is doing well today, but wants to go home. Updated Gilma on the progress being made to try and find placement and care for patient. Asked Rubi if it is okay to call her sister and/or brother and let them know she is in the hospital. She said yes that we can try to notify them of her hospitalization. Notified Sheri Padron of Dr. Wilkerson's consultation and concerns noted of patient's ability to make decisions regarding her own medical care and being able to care for herself. Sheri asked if GIN Pearce and/or Dr. Wylie would be able to dictate a letter stating their concerns with patient's ability or lack thereof to make her own decisions regarding her medical care and ability to care for herself. I contacted Fiorella Nicole and she was going to talk to Dr. Lewis about this. I also let Sheri know that patient states it is okay to call her sister Olga and let her know patient is in the hospital. I made referrals to Claudia, with [facility], Nicolette at [facility], and Alanna with [facility]. Will wait to hear from [facility] on the completion of the Level 2 ID screen, SNF's on whether or not they can accept, and Sheri Padron APS on guardianship.
[2017-03-15 12:38] LABS: ALBUMIN 2.2 gm/dL (3.5-5.0); CREATININE 0.5 mg/dL (0.5-1.1); MAGNESIUM 1.9 mg/dL (1.8-2.6)
[2017-03-15 12:45] LABS: ANION GAP 11.7 (10.0-19.0); CALCIUM 7.1 mg/dL (8.5-10.5); POTASSIUM 2.7 mMol/L (3.7-5.1)
--- NOTE | 2017-03-15 15:00 | NUR ---
CONSULT RECEIVED FOR [facility]. ENSURE ENLIVE TID AND MAGIC CUP TID. PT ALREADY RECEIVING ENSURE ENLIVE TID; CHANGED FLAVOR TO [facility]. ONLY. MAGIC CUP TID ADDED.
--- NOTE | 2017-03-15 18:13 | NUR ---
Patient is alert and oriented to person, place and situation. She is a full lift, Q2 turns. Incontinent of bowel and bladder. She will put her hands in her stool and play with it. Fingernails were clipped today. Mechanical soft diet. Hallucinations this AM, saw bugs all over the room. Perianal area is red, aloe vesta applied with every brief change. Psych eval yesterday, deemed incompetent to make own decisions. Meds were adjusted today. Continue to monitor BMs and incontinence.
--- NOTE | 2017-03-16 05:27 | NUR ---
Significant Event: PATIENT IS ALERT TO PERSON NOT TIME OR SITUATION. AMBULATES WITH A FULL BODY LIFT AND 2 ASSIST. IV R HAND D5 NS RUNNING @ 125. INCONTINTENT OF BOWEL AND BLADDER. Q 2 HOUR TURN. WSS WNL AFEBRILE. DOES NOT EAT WELL NEEDS ASSISTANCE. MECHNICAL SOFT DIET SISTER IS WORKING ON BECOMING POA. HAZARDOUS DRUGS. SEEKING PLACEMENT AT THIS TIME. Follow up:
--- NOTE | 2017-03-16 10:32 | NUR ---
A - NUTRITION F/U. PT A/O X 2. K+ 2.7, GLU 92, BUN/OCCUPATIONAL THERAPY AIDES TEACHER 5/0.5, ALB 2.2. PT W/ 1+ BLE EDEMA. DIET: REGULAR W/ ENSURE TID AND MAGIC CUPS TID. INTAKE 0-50%. D - AT RISK W/ INADEQUATE ORAL INTAKE R/T DECREASED APPETITE AEB INTAKE RECORD. I - GOAL: 50% OR BETTER INTAKE BY NEXT REVIEW. M/E - ENCOURAGE INTAKE; WILL F/U IN 2-4 DAYS.
--- NOTE | 2017-03-16 12:30 | NUR ---
Received the Level 2 PASRR Screen back and patient is apporved for group home home placement. I called Claudia at [facility] and let her know the recommendations from [facility]. I heard back from [facility] and [facility] and both have declined patient. At 1050am Claudia from [facility] called and said they also have to decline because they do not feel they can meet her needs. Notified Fiorella Nicole of this. Will start referrals to comminuties surrounding [place]. Spoke to Sheri Padron with [facility] and informed her that no facilities in [place] will accept patient. She is waiting to hear back from patient's sister Rosamaria on whether or not she will agree to being her guardian. Gilma Hennessy, her therapist and Angel, her friend, brought her cat Dyllan to see her at the hospital. I let Gilma know where we are in trying to find placement for patient. Patient will be here until we find placement for her as she is not safe to discharge to home. Will continue to work on placement.
--- NOTE | 2017-03-16 17:20 | NUR ---
Patient is alert and oriented, hypotensive, on room air. Total lift with nursing staff, PT/OT working with her. Mechanical soft diet, poor oral care at home, Peridex scheduled. Has had 3 BMs this shift, is incontinent of stool and urine. Was completely soaked this morning and had stool up the back, front and leaking out of her brief. Pericares performed with every turn. Repo Q2 hours. Redness to perianal area. Bilateral hand IVs, potassium chloride infusing in L) hand and fluids TKO on R) hand. Started on benefiber and imodium today, also received K+CL- 40mEq PO. Continue to monitor for BMs and labs.
--- NOTE | 2017-03-17 05:09 | NUR ---
JENNIFER IS ALERT, NOT ORIENTED TO PLACE TIME OR SITUATION. USES FULL BODY LIFT WITH 2 ASSIST. MECHANICAL SOFT DIET. POOR EATING ABILITY ASSIST NECESSARY. TAKES MEDS WHOLE WITH WATER. INCONTINENT OF URINE AND BOWEL SHE WILL PUT HANDS IN BM AND PICA. USE MOISTURE BARRIER WITH EVERY CHANGE. IV TO R HAND SLUGGISH NEW IV TO L HAND WITH FLUIDS RUNNING D5 NS @125 ML/HR. VSS WNL ON RA. HAZARDOUS DRUGS. SEEKING PLACEMENT AT THIS TIME SISTER IS WORKING ON BECOMING POA.
[2017-03-17 05:10] LABS: ALBUMIN 2.1 gm/dL (3.5-5.0); BLOOD UREA NITROGEN 8 mg/dL (6-24); CO2 20 mMol/L (22-32); CREATININE 0.4 mg/dL (0.5-1.1); MAGNESIUM 1.8 mg/dL (1.8-2.6); PHOSPHORUS 2.6 mg/dL (2.5-4.9); SODIUM 144 mMol/L (135-145)
[2017-03-17 05:16] LABS: CALCIUM 7.4 mg/dL (8.5-10.5); CHLORIDE 116 mMol/L (96-110)
--- NOTE | 2017-03-17 17:24 | NUR ---
Oriented to self. Cooperative with cares. To BSC for BM today and shower chair to shower. VSS, tachy, afebrile, on RA. No PRN meds given. Poor oral intake; bites of food and drinks Ensures. Frequent oral cares. Nystatin ointment for groin/periarea.
--- NOTE | 2017-03-18 05:19 | NUR ---
Significant Event: VSS ON RA. IVF INFUSING TKO. PT HAD XLG INCONTINENT VOIDX2. COOPERATIVE WITH CARES. REINFORCED CALL LIGHT USE. Follow up:
--- NOTE | 2017-03-18 15:24 | NUR ---
Oriented to self. Cooperative with cares. BM on BSC, incontinent of bladder x2 today. Nathalia/vag/groin areas very excoriated. Applied Mycostatin Ointment; powder now also ordered QID. Pride placed this afternoon for skin integrity. WOC consult for this also. Up to chair x1 hr today. Eating small amounts of regular diet. Drinks Ensures well. Offer fluids frequently. Gave NS 250ml bolus for hypotension. Fluids now TKO to LH. Frequent oral cares also. Waiting on placement. Patient states that she knows she needs to go to a facility where she can have help with her cares.
--- NOTE | 2017-03-19 04:32 | NUR ---
Significant Event: Pt oriented to self. Likes company. Did state she knows she needs to go to a home but would eventually like to get back home to her friend and her cat. Beginning of shift pt was hypotensive, gave 1 liter NS bolus. VSS since, slightly tacky in the one teens. Afebrile. Repositioned q 2 hours. Skin very excoriated and has open area in coccyx. Aspiration and haz drug precautions. Follow up: Needs to be up in chair for meals. Aggressive oral cares.
--- NOTE | 2017-03-19 13:05 | NUR ---
Phone call today from Buzz Perdomo, mergers and acquisitions attorney in [place] at [phone], as he is working with patient's sister Olga regarding guardianship. Buzz states he will be filing temporary guardianship papers this week. I heard back from [facility] in [place] and they are not able to accept patient because they do not accept the Medicaid Total Care for individuals under the age of 65. I have not heard back from [facility] to see if they have found a bed for patient. I did hear back from the [employer] stating the referral I made to them last Sunday was not an appropriate referral due to her participating with the Medicaid Waiver program. I called Corine with the League back to ask her about this, but I had to leave her a message ([phone]). Will wait to hear back from Corine for more clarification on the Medicaid Waiver Program. Will also send out more referrals today.
--- NOTE | 2017-03-19 14:55 | NUR ---
Significant Event: Pt denies pain. total lift for transfers. Turned q 2 hrs. Has large excoriated buttocks/periarea, nystatin in use. a/o but forgetful at times. Pride draining yellow urine. Oozing loose stool. Has open soare to crease of buttocks. VS stable. Awaiting placement. Follow up:
--- NOTE | 2017-03-19 15:19 | NUR ---
A-NUTRITION F/U OA TO CREASE OF BUTTOCKS. PT IS WAITING FOR PLACEMENT LABS: NA 144, K+ 4.0, GLU 99, BUN 8, LOZENGE MAKER HELPER 0.4, ALB 2.1 DIET RX: REGULAR WITH [facility] ENSURE ENLIVE TID AND [facility]. MAGIC CUP TID. PT TAKES ENSURE ENLIVE WELL. PO INTAKE IS POOR; SIP/BITES-25% EST NUTR NEEDS: [id number] KCALS AND 56-68 GM PROTEIN D-AT NUTRITION RISK W/INADEQUATE ORAL INTAKE R/T ALTERED APPETITE AEB INTAKE RECORDS. I-1)CONTINUE W/[facility]. ENSURE ENLIVE TID (PROVIDING 1050 KCALS/60 GM PROTEIN) 2)MOVE [facility]. MAGIC CUPS FROM TID W/MEALS TO TID BETWEEN MEALS M/E-GOAL: PO INTAKE >/=50% BY DISCHARGE 1)F/U PO INTAKE, SUPPLEMENT, AND POC IN 3-5 DAYS 2)ASSIST NEEDED
--- NOTE | 2017-03-20 00:27 | NUR ---
SIGNIFICANT EVENT: Pt alert, confused at times . VSS on RA. Regular diet - only ate magic cup and drank most of Ensure at dinner. Full lift - Q2h turn. Pride patent, draining yellow urine. Haz Drug precautions. PIV to R) hand infusing 20/hr - TKO. Waiting for placement. Pleasant and cooperative with cares.
[2017-03-20 08:15] LABS: BASOPHIL % 0.4 %; EOSINOPHIL # 0.1 K/uL (0.0-0.5); EOSINOPHIL % 2.6 %; HEMATOCRIT 24.5 % (33.0-46.0); IMMATURE GRANULOCYTE % 0.2 %; LYMPHOCYTE # 0.5 K/uL (0.8-4.0); LYMPHOCYTE % 11.3 %; MONOCYTE # 0.7 K/uL (0.0-1.0); MONOCYTE % 14.3 %; MPV 9.9 fl (9.4-12.4); NEUTROPHIL # (ANC) 3.3 K/uL (1.8-7.8); NEUTROPHIL % 71.2 %; NRBC % 0 /100WBC (0-0.00); PLATELET COUNT 257 K/uL (150-450); RBC 2.51 M/uL (3.50-5.50); WBC 4.7 K/uL (4.0-11.0)
[2017-03-20 08:21] LABS: HEMOGLOBIN 7.8 g/dL (10.0-15.0); MCH 31.1 pg (27.0-34.0); MCHC 31.8 gm/dL (32.0-36.5); MCV 97.6 fl (83.0-98.0)
[2017-03-20 08:22] LABS: RDW-CV 22.9 % (11.9-14.6)
[2017-03-20 08:29] LABS: ANION GAP 10.7 (10.0-19.0); BLOOD UREA NITROGEN 4 mg/dL (6-24); CALCIUM 7.5 mg/dL (8.5-10.5); CHLORIDE 110 mMol/L (96-110); CO2 24 mMol/L (22-32); CREATININE 0.4 mg/dL (0.5-1.1); POTASSIUM 3.7 mMol/L (3.7-5.1); SODIUM 141 mMol/L (135-145)
[2017-03-20 08:43] LABS: BILIRUBIN URINE NEGATIVE (NEGATIVE); BLOOD URINE NEGATIVE /UL (NEGATIVE); COLOR URINE YELLOW (YELLOW); GLUCOSE URINE NEGATIVE (NEGATIVE); KETONE URINE NEGATIVE (NEGATIVE); LEUKOCYTES URINE 25 /UL (NEGATIVE); NITRITE URINE NEGATIVE (NEGATIVE); PROTEIN URINE NEGATIVE (NEGATIVE); SPEC GRAVITY URINE 1.005 (1.003-1.035); TURBIDITY URINE CLEAR (CLEAR); UROBILINOGEN URINE NORMAL (NORMAL)
[2017-03-20 08:58] LABS: RBC URINE NEGATIVE #/HPF (NEGATIVE); WBC URINE RARE #/HPF (NEGATIVE)
[2017-03-20 08:59] LABS: BACTERIA URINE NEGATIVE (NEGATIVE); EPITHELIAL URINE NEGATIVE #/HPF (NEGATIVE)
[2017-03-20 12:28] LABS: HEMATOCRIT 29.2 % (33.0-46.0); HEMOGLOBIN 9.3 g/dL (10.0-15.0); MCH 31.4 pg (27.0-34.0); MCHC 31.8 gm/dL (32.0-36.5); MCV 98.6 fl (83.0-98.0); MPV 9.9 fl (9.4-12.4); PLATELET COUNT 259 K/uL (150-450); RBC 2.96 M/uL (3.50-5.50); RDW-CV 23.3 % (11.9-14.6); WBC 5.1 K/uL (4.0-11.0)
--- NOTE | 2017-03-20 13:08 | NUR ---
PT NO LONGER WANTS TO RECEIVE THE MAGIC CUPS TID. SHE WOULD LIKE A MALT TYPE ITEM. WILL START HEALTHY SHAKES TID B/W MEALS AND D/C MAGIC CUP TID B/W MEALS.
[2017-03-20 13:13] LABS: ABSOLUTE NEUTROPHIL CT (ANC) 4.2 K/uL (1.8-7.8); BANDED NEUTROPHIL # 0.4 K/uL (0.0-0.1); BANDED NEUTROPHILS % 8 %; LYMPHOCYTE # 0.3 K/uL (0.8-4.0); LYMPHOCYTE % 6 %; MONOCYTE # 0.6 K/uL (0.0-1.0); SEGMENTED NEUTROPHIL # 3.8 K/uL (1.8-7.8); SEGMENTED NEUTROPHIL % 74 %
--- NOTE | 2017-03-20 13:49 | NUR ---
Phone call from Katie with [facility] stating that [facility] site administrator was coming to assess patient today. Katie did state that none of the [facility] facilities will accept patient until the guardianship is in place. I met with patient twice today. She was continuing to say that she wants to go home, but she did understand that she [place] going [place] [facility] [place] to get stronger before going home. Sheri Padron with [facility] came to the floor and met with patient for a social visit. I updated her on where I am with placement options. Sheri said she was going to call Buzz Perdomo the girls swimming coach preparing the paperwork for the guardianship and see if he knows when he will be filing the paperwork. Sheri will keep me posted on what she hears from Buzz. I also had a call back from Renee at [facility] stating she has a female bed available and asked me to fax the information to her which I did (fax [phone]). Will wait to hear back from Xiomara Pisano and Sheri on guardianship.
--- NOTE | 2017-03-20 15:28 | NUR ---
Significant Event: Pt denies pain. BP this was 72/42 pulse 104, resp 24, O2 sat 92% on tempt of 99.2., diaphoretic and seemed drowsy. notified. Gave 1 liters bolus, blood cultures x2, pro-yuan/lactate and other labs. Dc'd singleton at [address] cath for UA at 0820, to leave singleton out. BP systolic up to upper 90's after bolus. Started on IVATB. chest xray and ct of chest done. hgb 7.8 initiallly but up to 9.5 after lunch. Hematest x3, first one done and is negative. Midline placed to left upper arm. IV to left hand removed, leaking. Buttocks and periarea continue to be excoriated, aloe and nystatin applied as needed. Inc urine. Up to commode with 2 max assist. Poor appetite. BP low 90's systolic after lunch but PT went to sit her on the edge of bed and bp was 89 systolic. notified, pt placed back into bed and another 1 liter bolus started at 1430. Follow up:
--- NOTE | 2017-03-21 04:59 | NUR ---
Significant Event:PATIENT IS ALERT BUT DISORIENTED TO TIME AND PLACE. PATIENT IS REPETITIVE IN HER SPEECH. VERY APPOLOGETIC. INCONTINENT OF URINE IN LARGE AMOUNTS. OPEN AREA ON COCCYX. BP CHECKS EVERY 2 HOURS. TO CALL IF MAP IS LESS THAN 65. LEFT MIDLINE. D5NS INFUSING AT 75ML/HR. BC DONE X2 YESTERDAY. NEED HEMATEST X2. FIRST WAS NEGATIVE.FULL LIFT. Follow up:
--- NOTE | 2017-03-21 10:40 | NUR ---
Phone call from Renee at [facility] stating they are not able to accept her due to her level of care. Will wait to hear from [facility] to see if they can accept.
--- NOTE | 2017-03-21 16:17 | NUR ---
Significant Event:PT. ALERT BUT DISORIENTED TO TIME AND PLACE. DENIES PAIN. INCON OF LARGE AMOUNT OF URINE X3 AND ONE STOOL. BLOOD PRESSURES HAVE BEEN 106/65, 102/64, 102/49 TODAY. MAP OF 84. WE ARE TO CALL THE DR. IF MAP IS LESS THAN 65. EATING FAIR WITH ENCOURAGEMENT. REPETITIVE STATEMENTS. HX CHERYL TUMOR. Follow up:
--- NOTE | 2017-03-22 03:51 | NUR ---
SIGNIFICANT EVENT: VSS. B/P'S Q3HRS, CALL DOCTOR WITH MAP <65. Q2HR TURNING. IV TO R) FA RUNNING D51/2NS @75ML. 2 PERSON ASSIST WITH TURNING AND FULL LIFT. MAY USE WHEEL CHAIR AROUND THE HALLS. TELE. INCONTINENT OF STOOL AND URINE.
[2017-03-22 05:43] LABS: BASOPHIL % 0.4 %; EOSINOPHIL # 0.2 K/uL (0.0-0.5); EOSINOPHIL % 2.8 %; HEMATOCRIT 28.6 % (33.0-46.0); HEMOGLOBIN 9.1 g/dL (10.0-15.0); IMMATURE GRANULOCYTE % 0.4 %; LYMPHOCYTE # 0.6 K/uL (0.8-4.0); LYMPHOCYTE % 10.3 %; MCH 31.6 pg (27.0-34.0); MCHC 31.8 gm/dL (32.0-36.5); MCV 99.3 fl (83.0-98.0); MONOCYTE # 0.5 K/uL (0.0-1.0); NEUTROPHIL # (ANC) 4.1 K/uL (1.8-7.8); NEUTROPHIL % 77.1 %; NRBC % 0 /100WBC (0-0.00); PLATELET COUNT 237 K/uL (150-450); RBC 2.88 M/uL (3.50-5.50); RDW-CV 22.4 % (11.9-14.6); WBC 5.4 K/uL (4.0-11.0)
[2017-03-22 05:59] LABS: ALBUMIN 2.1 gm/dL (3.5-5.0); ANION GAP 11.7 (10.0-19.0); BLOOD UREA NITROGEN 4 mg/dL (6-24); CALCIUM 7.8 mg/dL (8.5-10.5); CHLORIDE 110 mMol/L (96-110); CO2 23 mMol/L (22-32); CREATININE 0.5 mg/dL (0.5-1.1); MAGNESIUM 2.3 mg/dL (1.8-2.6); PHOSPHORUS 3.7 mg/dL (2.5-4.9); POTASSIUM 3.7 mMol/L (3.7-5.1); SODIUM 141 mMol/L (135-145)
--- NOTE | 2017-03-22 14:23 | NUR ---
Spoke with GIN Pearce today and she states that Rubi is doing better today. Would like to plan for her to discharge to [facility] on [facility]. I contacted Joyce at [facility] and left her a message with this plan. Will need to fgure out a van time. All of this is dependent on getting the temporary guardianship papers. Phone call placed to [facility], Sheri Padrno and we are still waiting on guardianship paperwork. Will continue to follow.
--- NOTE | 2017-03-22 16:36 | NUR ---
Significant Event:PT ALERT. ON BEDREST WITH TWO TRANSFER TO CHAIR OR LIFT. INC. OF LARGE AMOUNT OF URINE AND TWO STOOLS TODAY. IV RFA WITH FLUIDS RUNNING. EATING 25% OF MEALS. BLOOD PRESSURES Q SHIFT NOW. TURN Q 2 HOURS. PLAN IS TO GO TO [facility] ON SUNDAY. Follow up:
--- NOTE | 2017-03-22 16:54 | NUR ---
A - NUTRITION FOLLOW-UP. WT STABLE PER RECORD. LABS: BUN 4, ALB 2.1, PRE-ALB 23 (03/14). MEDS: ZYVOX, BENEFIBER DIET: REGULAR W/ ENSURE ENLIVE TID; HEALTH SHAKES TID IN BETWEEN MEALS. INTAKE 24% X4 MEALS, TAKES ORAL SUPPLEMENT 75-100% X1 NOTED. NEEDS ENCOURAGEMENT TO EAT PER SHIFT REPORT. PER PT, SMALL EATER. DOES DRINK ENSURE ENLIVE ON TRAY. YET TO TRY HEALTH SHAKES. ENCOURAGEMENT GIVEN. EST NEEDS: [id number] KCAL, 56-68 GRAMS PROTEIN, FLUID NEEDS: 1ML/KCAL D - INADEQUATE ORAL INTAKE RELATED TO ALTERED APPETITE EVIDENCED BY PO 25% X4 MEALS AND PATIENT REPORT. I - WILL CONTINUE W/ ENSURE ENLIVE TID; HEALTH SHAKES BID IN BETWEEN MEALS AND MAGIC CUP ONCE DAILY IN BETWEEN MEALS. M/E - GOAL: PT WILL BE ABLE TO TOLERATE >50% OF MEALS AND AT LEAST TWO ORAL SUPPLEMENTS PER DAY IN 4-6 DAYS.
--- NOTE | 2017-03-22 17:58 | NUR ---
Met with Gilma Hennessy when she came to visit with Rubi today. Gilma brought me an article that Rubi wrote a number of years ago that was submitted to the [employer]. She brought this to show that in the past Rubi seemed to have a normal intelligence or no developmental delay. Rubi seemed to be more alert and oriented today when Gilma was visiting.
--- NOTE | 2017-03-23 06:07 | NUR ---
Significant Event: Patient is alert and oriented x 3. Forgetful. Repetative. VSS on room air. On telemetry, no calls. Up with 2 assist. Incontinent of urine and stool. BM x 1 this shift. Right forearm IV with D5 1/2 NS running at 75 ml/hr. Started on PO levaquin last night. Denies any pain. Reposition q2 hours. Patient is pleasant and cooperative with cares. Follow up:
--- NOTE | 2017-03-23 12:37 | NUR ---
Phone call from Sheri Padron with APS at 0920 today asking if patient has discharged to [facility]. I informed Sheri that patient is not discharging until Sunday and that I still have not heard on the guardianship papers. Sheri states she also has not heard on the guardianship so she was placing a call to Buzz Perdomo, the county coroner in [place] to see if they have been filed. I also received a call from James with [facility] to see if patient has discharged yet. I called James back at [phone] and informed her that plan is to discharge to [facility] on Sunday and that I called Joyce yesterday and left her a message with this information. I asked James to contact Joyce at [facility] and see if they will accept on Sunday if we do NOT have the guardianship papers. James was going to contact them and will get back to me.
--- NOTE | 2017-03-23 16:08 | NUR ---
Patient is alert, 2 assist with PT/OT, walker and gait belt. Lift for nursing staff. IV to R) elbow. Incontinent of bladder and bowel. Was up in chair for a couple hours today. Labs were drawn, if the creatinine is greater than 1, will infuse 1L of NS over [address] of the chest with contrast to rule out PE. If guardianship is obtained by Sunday, she will go to [place].
[2017-03-23 16:21] LABS: ALBUMIN 2.3 gm/dL (3.5-5.0); ALK PHOS 72 IU/L (33-138); ALT 36 IU/L (12-78); AST 32 IU/L (10-40); CALCIUM 7.8 mg/dL (8.5-10.5); CHLORIDE 112 mMol/L (96-110); CO2 23 mMol/L (22-32); CREATININE 0.6 mg/dL (0.5-1.1); SODIUM 144 mMol/L (135-145); TOTAL PROTEIN 5.8 g/dL (6.0-8.4)
[2017-03-23 16:22] LABS: BLOOD UREA NITROGEN 9 mg/dL (6-24); TOTAL BILIRUBIN 0.4 mg/dL (0.0-1.5)
--- NOTE | 2017-03-24 04:32 | NUR ---
Significant Event: PATIENT HAS BEEN ALERT AND ORIENTED ALTHOUGH FORGETFULL THROUGHOUT SHIFT. PATIENT WAS INCONTINENT OF BOWEL X2 AND URINE X1 OTHERWISE USED BEDPAN WITH LARGE AMOUNTS OF URINE RESULTING. USES CALL LIGHT APPROPRIATELY. Follow up: IF GUARDIANSHIP GRANTED, PATIENT WILL GO TO [place] ON SUNDAY.
--- NOTE | 2017-03-24 19:26 | NUR ---
Significant Event: TOOK OVER CARES AT 1430...HAS RASH TO PERINEAL AREA AND GROIN FOLDS, NYSTATIN APPLIED. VOIDS PER BEDPAN. IS HEAVEY LIFT TO COMMODE, BUT WILL WALK WITH PHY THER ASSIST. IS FORGETFUL, IS ABLE TO USE CALL LIGHT... Follow up:
--- NOTE | 2017-03-25 02:24 | NUR ---
SIGNIFICANT EVENT: Pt alert, confused at times. Incontinent of urine, stool. Full lift. PIV to posterior L) upper FA infusing D5NS at 75. Q2h turn. Regular diet. Waiting for placement. Pleasant and cooperative with cares.
--- NOTE | 2017-03-25 16:02 | NUR ---
Patient is alert and oriented, did have auditory hallucinations this morning. Thought there was a small child behind the curtain. Can become agitated at times when she doesn't understand what is going on. Has used the bedpan a couple times this shift, still having loose stools and is incontinent of that. Mechanical soft diet, had about 40% of lunch today but spilt the ensure all over herself so recieved two baths today. Is still hypotensive and tachycardic. IV to L) outer elbow infusing at 75ml/hr. No complaints of pain. Angel came to visit for a short while. Possible dismissal tomorrow to [place] if guardianship is granted.
--- NOTE | 2017-03-26 02:49 | NUR ---
SIGNIFICANT EVENT: Pt alert, oriented but forgetful and anxious at times. Hypotensive at times 91 to 105 over 49 to 67, other VSS on RA. Regular diet with Ensure supplements. Full lift-2PA. Incontinent of bowel/bladder but did call to use bedpan x1 this shift. Q2h turn. Plan is for discharge to [facility] home - possibly tomorrow if sister gets guardianship.
--- NOTE | 2017-03-26 11:52 | NUR ---
0805 phone call placed to James with [facility] asking if she heard from [facility] regarding whether or not they will accept without the guardianship papers. She states she did not hear from them on Sunday. She has a phone conference with them this morning and she will check and get back to me after 1015. 0810 Phone call to Sheri Padron with [employer] to see if she has received guardianship papers. She states that she has not, but she will contact the county court to see if they have been filed. 0945 phone call back from Sheri stating [facility] state the papers have not been filed yet. She left a message for the insurance defense attorney to call her Buzz Perdomo at [phone]. At 4067 I left a message for patient's siter Olgajuan Anderson ([phone]) asking her to call me regarding the guardianship papers. 1015 phone call from James with [facility] stating [facility] will NOT accept without at least temporary guardianship papers on site. They also state the guardian needs to be with Rubi when she arrives to complete the admission paperwork. 1115 phone call from Olga Anderson stating the emergency temporary guardianship paperwork has been filed and to her knowledged was signed by the manager of tires sales. She states that Buzz or his partner Abdiaziz Pickett should be sending that to us. I informed her that [facility] would like her to be present to sign the admission papers and she states this is not possible. She said that I can give [facility] so they can call her to discuss the admission papers. I contacted [facility] and provided them with Olga's number. Will wait to hear from insurance defense attorney on guardianship papers.
--- NOTE | 2017-03-26 15:15 | NUR ---
Cooperative with cares. Heavy 2 assist, GB, walker. Up to chair for several hours today. Voiding per commode and bedpan. IVF to Left elbow; no complications. Tolerating regular diet well; eating 50%+ and Ensures. VSS though hypotensive, afebrile, on RA. No PRN meds given. Nathalia area very red. Ointment and oral rinse at bedside.
--- NOTE | 2017-03-26 15:24 | NUR ---
A - NUTRITION F/U. ORIENTED X 3, FORGETFUL. NO NEW LABS OR WEIGHT. DIET: REGULAR W/ MIGHTY SHAKES. INTAKE VARIES 0-75%. D - AT RISK W/ INADEQUATE ORAL INTAKE R/T DECREASED APPETITE AEB INTAKE RECORD. I - GOAL: 50% OR BETTER INTAKE. M/E - CONT TO ENCOURAGE INTAKE. LIKELY DC SOON. WILL F/U ON INTAKE IN 2-4 DAYS IF STILL HERE.
--- NOTE | 2017-03-27 02:12 | NUR ---
SIGNIFICANT EVENT: Pt alert, oriented but forgetful at times. A little more anxious this shift - still hadn't slept as of 0030. Hypotensive at times - 95 to 124 over 53 to 64, tachypneic - 24, other VSS on RA. Requested bedpan appropriately so far this shift, no incontinence. Plan is to DC to [place] once guardianship is approved. L)outer FA PIV is SL, flushes well with good BR. Cooperative with cares.
--- NOTE | 2017-03-27 12:26 | NUR ---
Phone call to Tomás Pickett at [phone] to see if he received the letter from Dr. Wilkerson. Tomás states Dr. Wilkerson was not willing to write a letter, so he reached out to Ruth GREENFIELD at [facility], but he has not heard from her yet. I explained to him that I have a letter from Dr. Rice and I am happy to fax it to him. I faxed the letter to Tomás at [phone]. I will wait to hear from him on submitting the guardianship papers with [facility].
--- NOTE | 2017-03-27 18:30 | NUR ---
Significant Event: Patient up to chair twice today and then back to bed. Has had some incontnence, but did have 1 void. Has had 1 small BM and 2 smears. New orders for patient's pericare. We are to continue the nystatin cream as ordered, but now patient has a slit just above her coccyx that is open. New orders are for NO BRIEFS. We can use chux and postion one below and one above patient and inbetween her knees, but nothing that binds around her hips/lower back/coccyx. We are also to use sensicare instead of aloe vesta. Also float heels and reposition [id number]. Denies pain. Is good about drinking ensure and trying to eat at each meal but tonight for dinner, patient said she doesn't like fish and had salmon on her tray. Patient did drink her ensure tonight. Plan is still for patient to go to [place] when guardian papers are filed. Have just told patient that we are working on it but that I hadn't heard any definite time yet. Reminded patient that we would take good care of her until she left. Follow up: Continue to monitor.
--- NOTE | 2017-03-28 04:08 | NUR ---
Significant Event: Patient alert and oriented X3. Forgetful at times. Reorients easily. L) forearm IV saline locked. Repo every 2 hours. Patient refused X2. States she can't sleep with a pillow under her at night. BP runing hypotensive in 90s. HR tachy low 100s, tachypenic 20-22. Room air. Nystatin and sensicare to buttocks. Sore in crease of buttocks. Voids per bedpan, no incont this shift. Calls appropriately. Fell on 03/09. Float heels. Pneumatics on. Hazardous drug precuations for risperidal. Plan to discharge to [place] once sister is able to gain guardianship. Pt boyfriend visits during day. 2 person assist. Up to chair with meals. Follow up: Monitor skin
--- NOTE | 2017-03-28 15:29 | NUR ---
Significant Event: Patient is alert and oriented to person and place but not time. Reorients easily, is forgetful. Blood pressure does run in the 80's and pulse runs 100-116- MD is aware. Incontient at times. Up with 2PA, walker and gait belt. L)FA IV, SL. Tele on, no calls. Has open area in her crease on her buttocks. No briefs. Sensicare to sacral wound TID and PRN stooling. Turn q2 hours as patient allows. Good appetite. Transferring to [place] tomorrow for D/C. Cooperative with cares. Oral cares and bag bath completed.
--- NOTE | 2017-03-28 15:39 | NUR ---
Phone call to Joyce at [facility] [phone] at 0800 today informing her that the papers for temporary guardianship were sent and will be decided upon in court today. Joyce states that they are still able to accept patient and we can plan on discharge to them tomorrow if the papers get signed today. I informed Joyce that patient's sister Rosamaria is not able to come to [place] to sign the admission papers. I gave her Rosamaria's number at [phone] and encouraged her to call Rosamaria to make plans for completing the admission paperwork. I recieved a phone call from Sheri Padron with [employer] at 1320 asking if I had heard from Mr. Pickett. I informed Sheri that I have not. At 1535 I heard from Sheri that the papers are in the judges hands and should be signed momentarily. HOA Denise called Joyce at [facility] and Joyce states she spoke to Rosamaria and has all the admission paperwork in the process of being completed. Tentatively arranged for a van time for tomorrow at 1300. Will wait for the guardianship papers to arrive via email. Packet started.
--- NOTE | 2017-03-29 01:12 | NUR ---
SIGNIFICANT EVENT: Pt alert, oriented and anxious. Forgetful at times. IV to L)FA DC'd at 2030, permission to DC IV access for remainder of stay - MD reminded that pt tends to be hypotensive and he stated this is the norm for pt and there is no plan to treat the hypotension. MEWS are high d/t hypotension, tachypnea and tachycardia - 89 to 92 over 42 to 54, 20 to 22 and 113 to 116. This is baseline for patient this visit. Tele on-no calls. Regular diet. Q2h turn. 2PA, walker and gaitbelt. NO BRIEFS! DC to [place] halfway tomorrow, tentative time of 1300. Cooperative with cares.
[2017-03-29 07:58] LABS: ALBUMIN 2.6 gm/dL (3.5-5.0); ANION GAP 11.2 (10.0-19.0); BLOOD UREA NITROGEN 12 mg/dL (6-24); CHLORIDE 106 mMol/L (96-110); CO2 24 mMol/L (22-32); CREATININE 0.6 mg/dL (0.5-1.1); PHOSPHORUS 4.1 mg/dL (2.5-4.9); POTASSIUM 4.2 mMol/L (3.7-5.1); SODIUM 137 mMol/L (135-145)
--- NOTE | 2017-03-29 08:59 | NUR ---
PT MOVED TO NO RISK W/ ADEQUATE ORAL INTAKE. TO DISCHARGE TODAY.
--- NOTE | 2017-03-29 11:50 | NUR ---
0800 email sent to Mr. Pickett because I have not received the guardianship papers yet. 0920 phone call placed to Sheri Padron to see if she had received the Guardianship papers and she has not. Sheri called the [facility] and she was told that the guardianship papers are on the judges desk and will be signed this morning. At 1130 I received the temporary guardianship papers from Mr. Pickett via email. I faxed these to Denita at [facility] at [phone] and to Katie with [facility] at [phone] (fax). I called Sheri Padron and let her know that I received the papers and patient would be discharging at 1330 today. I spoke to Dr. Rice, placed a copy of the Temporary Guardianship in the chart and faxed discharge orders to Katie at the above fax number. Met with patient this morning and she kept telling me that she is excited to be discharging today and that she understands she is going to [facility] for therapies. Her goal is still to get stronger with therapies and be able to return home and care for herself. Discharge packet is done. I contacted [facility] and provided them with the name of the nursing facility patient is transferrring to.
--- NOTE | 2017-03-29 13:30 | NUR ---
Is alert but forgetful.Is very hypotensive & the is aware of this.Is up with walker & 2 assists.Has no c/o pain.Is incont.at times.Hasnt ate much today.Has open area in her crease on her buttocks.Turn freq.
--- NOTE | 2017-03-29 13:40 | NUR ---
DISMISSED PER W/C TO [facility].BY FRIENDS & SAIL MAKER.TRANSFER PAPERS WERE SENT.PHONE REPORT WAS GIVEN TO LORETO MORALES LPN,NURSE AT [facility] [place] THAT SHE IS GOING TO.
== END 2017-03-29 14:00 | DRG 70 ==
LOC: GACC 14:33 → GMSU 17:31
PROVIDERS: Family Medicine; Internal Medicine; Physician Assistant; ADMIT Internal Medicine
PROC: F00ZJWZ Instrumental Swallowing and Oral Function Assessment using Swallowing Equipment (ICD-10-PCS; principal; 2017-03-09)
DX: G93.9 Disorder of brain, unspecified (principal); A41.9 Sepsis, unspecified organism; G93.40 Encephalopathy, unspecified; G93.6 Cerebral edema; J18.9 Pneumonia, unspecified organism; L89.153 Pressure ulcer of sacral region, stage 3; D62 Acute posthemorrhagic anemia; E44.0 Moderate protein-calorie malnutrition; N39.0 Urinary tract infection, site not specified; F05 Delirium due to known physiological condition; F09 Unspecified mental disorder due to known physiological condition; G37.9 Demyelinating disease of central nervous system, unspecified; W19.XXXA Unspecified fall, initial encounter; F25.0 Schizoaffective disorder, bipolar type; B96.89 Other specified bacterial agents as the cause of diseases classified elsewhere; Z68.20 Body mass index [BMI] 20.0-20.9, adult
CPT/HCPCS: A9577; C1751; J0696; J1644; J1956; J2020; J2543; J2930; J3360; J3480; J7030; J7040; J7042; J7050; Q9967

== ENCOUNTER → 2017-03-09 | Outpatient (CLI) | payer MEDICARE, MEDICAID ==
[~2017-03-09] MED LIST: KLONOPIN0.5 MG PO; LAMICTAL25 MG PO; RISPERDAL1 MG PO; RISPERDAL2 MG PO; TOPAMAX25 MG PO
== END | disposition disaster alternative care site (69) ==
LOC: GAMB 14:17
DX: M54.2 Cervicalgia (principal); G89.11 Acute pain due to trauma; R53.1 Weakness; W18.2XXA Fall in (into) shower or empty bathtub, initial encounter
CPT/HCPCS: A0425; A0429